=== PATIENT | female | born 1960 | race Caucasian/White ===

== ENCOUNTER → 2020-06-23 | Outpatient (CLI) | payer OTHER, SELFPAY ==
[2020-06-23 12:50] LABS: Absolute Lymphocyte Count 3.14 X10^3/uL (0.83-4.51); Absolute Neutrophil Count 2.4 X10^3/uL (2.0-7.7); Basophil# 0.06 X10^3/uL; Eosinophils% 3.2 % (0-5); Hematocrit 42.3 % (37-47); Hemoglobin 13.6 g/dL (12.0-15.0); Lymphocyte # 3.14 X10^3/ul (4.0); Lymphocyte % 50.2 % (19-41); Mean Corp Hgb Conc 32.2 g/dL (32-36); Mean Corpuscular Hgb 29.8 pg (27.0-32.0); Mean Corpuscular Volume 92.6 fL (81-99); Mean Platelet Vol. 9.3 fl (6.2-12.0); Monocyte# 0.43 X10^3/uL; Monocyte% 6.9 % (0-10); NRBC Flagged by Analyzer 0 % (0-5); Neutrophil # 2.41 X10^3/uL (2.7-7.7); Neutrophil % 38.5 % (47-70); Platelet Count 260 K/mm3 (150-450); RBC Distribution Width CV 13.2 % (11.6-14.6); RBC Distribution Width SD 44.7 fl (35.1-43.9); Red Blood Count 4.57 M/mm3 (4.2-5.4); White Blood Count 6.3 K/mm3 (4.4-11.0)
[2020-06-23 12:59] LABS: Erythrocyte Sedimentation Rate 10 mm/hr (0-30)
[2020-06-23 13:09] LABS: T3 Total - Triiodothyronine 1.13 ng/mL (0.6-1.81); Vitamin D,25 Hydroxy 39.6 ng/mL
[2020-06-23 13:18] LABS: AST(SGOT) 16 U/L (15-37); Alanine Aminotransfer ALT/SGPT 15 U/L (13-56); Albumin, Serum 3.7 g/dL (3.2-5.0); Alkaline Phosphatase 83 U/L (45-117); Anion Gap 5 (5-15); BUN 17 mg/dL (7-18); BUN/Creat Ratio 22.8 RATIO (10-20); Calcium,Total 9.3 mg/dL (8.5-10.1); Chloride 109 mmol/L (98-107); Cholesterol 187 mg/dL (200); Creatinine, Serum 0.75 mg/dL (0.55-1.02); EST Glomerular Filtration Rate 84 mL/min (>60); Est Glom Filt Rate - Afr Amer 102 mL/min (>60); Globulin 3.7 g/dL (2.2-4.2); Glucose 82 mg/dL (74-106); High Density Lipoprotein 75 mg/dL; Potassium 3.9 mmol/L (3.5-5.1); Protein, Total 7.4 g/dL (6.4-8.2); Sodium Level 141 mmol/L (136-145); T4 Total, Thyroxin 11.1 ug/dL (4.8-13.9); Thyroid Stim Hormone (TSH) 0.33 uIU/mL (0.358-3.74); Triglycerides 83 mg/dL; Very Low Density Lipoprotein 17 mg/dL (5-40)
== END | disposition home or self-care (01) ==
LOC: LAB 12:33
PROVIDERS: PCP Specialist; Referring Provider Specialist; Visit Provider Specialist
DX: B02.9 Zoster without complications (principal); R63.4 Abnormal weight loss
CPT/HCPCS: 36415; 80053; 80061; 82306; 84436; 84443; 84480; 85025; 85652

== ENCOUNTER → 2024-08-27 | Outpatient (CLI) | payer OTHER, SELFPAY | END | disposition home or self-care (01) | LOC: PSN 08:47 | PROVIDERS: PCP Specialist; Referring Provider Nurse Practitioner Family; Visit Provider Nurse Practitioner Family | DX: R06.02 Shortness of breath (principal) | CPT/HCPCS: 94060; 94726; 94729 ==

== ENCOUNTER → 2024-09-03 | Outpatient (CLI) | payer OTHER, SELFPAY ==
--- NOTE | 2024-09-03 11:45 | CT_ITS ---
HISTORY: shortness of breath, interstitial changes on xray. TECHNIQUE: Helically acquired images were obtained of the chest without contrast. A radiation dose optimization technique was used for this scan. 808 images. COMPARISON: XR 09/16/2023. FINDINGS: LARGE AIRWAYS: Patent. LUNGS: 2 mm left upper lobe nodules. Very mild linear lower lobe atelectasis or scarring. No acute alveolar consolidation, traction bronchiectasis, honeycombing PLEURA: No pneumothorax or significant pleural effusion. HEART/PERICARDIUM: Heart within normal limits in size. No significant coronary artery calcification. No pericardial effusion. VESSELS: Thoracic aorta nondilated. Atherosclerosis. MEDIASTINUM/ANTIONETTE: No pathologically enlarged adenopathy. UPPER ABDOMEN: Unremarkable. BONES: Mild degenerative change osteopenia. CT/Chest without Contrast IMPRESSION: 2 mm left upper lobe pulmonary nodules.Fleischner Society Guidelines for low-risk or high-risk patients recommend that one should consider chest CT at 12 months. Electronically Signed: Mariana Morris MD at 15:10 EST ,
[2024-09-03 12:06] VITALS: PULSE 86; PULSE 88; PULSE 89; PULSE 90; PULSE 91; PULSE 92; PULSE 94; O2SAT 94; O2SAT 95; O2SAT 96; O2SAT 97
--- NOTE | 2024-09-07 09:17 | PCM.PSN.6M ---
PSN 6 Minute Walk Test 6 Minute Walk Test 6 Minute Walk Test: 6 Minute Walk Test PSN:6-Minute Walk Test Start: 09/03/24 12:05 Freq: Status: Active Protocol: [id number] Document 09/03/24 12:06 [facility] (Rec: 09/03/24 12:12 [facility] [id number]) 6 Minute Walk Test Date Performed 09/03/24 Time Performed 11:50 Height 5 ft 8 in Weight: 124 lb Weight in Pounds 124.[address]: Arlene Zabala Assistive device used: None Pre-test Oxygen Delivery Method Room Air Pulse Ox (%) 96 Pulse Rate (60-100 beats/min) 91 Dyspnea Shanelle Scale (0-10) 0 1st minute Oxygen Delivery Method Room Air Pulse Ox (%) 96 Pulse Rate (60-100 beats/min) 88 Dyspnea Shanelle Scale (0-10) 0 Number of Rests Taken 0 2nd minute Oxygen Delivery Method Room Air Pulse Ox (%) 95 Pulse Rate (60-100 beats/min) 94 Dyspnea Shanelle Scale (0-10) 1 Number of Rests Taken 0 Reported Symptoms Increased Work of Breathing 3rd minute Oxygen Delivery Method Room Air Pulse Ox (%) 94 Pulse Rate (60-100 beats/min) 92 Dyspnea Shanelle Scale (0-10) 1 Number of Rests Taken 0 Reported Symptoms Increased Work of Breathing 4th minute Oxygen Delivery Method Room Air Pulse Ox (%) 96 Pulse Rate (60-100 beats/min) 90 Dyspnea Shanelle Scale (0-10) 1 Number of Rests Taken 0 Reported Symptoms Increased Work of Breathing 5th minute Oxygen Delivery Method Room Air Pulse Ox (%) 97 Pulse Rate (60-100 beats/min) 89 Dyspnea Shanelle Scale (0-10) 1 Number of Rests Taken 0 Reported Symptoms Increased Work of Breathing 6th minute Oxygen Delivery Method Room Air Pulse Ox (%) 96 Pulse Rate (60-100 beats/min) 91 Dyspnea Shanelle Scale (0-10) 1 Number of Rests Taken 0 Reported Symptoms Increased Work of Breathing Post-test Oxygen Delivery Method Room Air Pulse Ox (%) 97 Pulse Rate (60-100 beats/min) 86 Dyspnea Shanelle Scale (0-10) 0 Full Laps Walked 20 Partial Lap, Number of Tiles Walked 13 Total Distance Walked (ft) 1193 Interpretation Interpretation: The patient ambulated 1193 feet over the course of 6 minutes beginning on room air without assistive devices. Pretesting oxygen saturation was noted to be 96% on room air. With ambulation, the daxa oxygen saturation was 94%. There was no significant exertional oxygen desaturation. Recommendations Recommendations: There is no indication for the use of supplemental oxygen at this time.
== END | disposition home or self-care (01) ==
LOC: PSN 11:37
PROVIDERS: PCP Specialist; Referring Provider Nurse Practitioner Family; Visit Provider Nurse Practitioner Family
DX: R06.02 Shortness of breath (principal)
CPT/HCPCS: 71250; 94618

== ENCOUNTER → 2024-12-13 | Outpatient (CLI) | payer MEDICARE, OTHER, SELFPAY ==
--- NOTE | 2024-12-13 07:22 | ECHOD_ITS ---
Reason For Study Reason For Study: Dyspnea/SOB Procedure This was a 2D Doppler, Color Flow transthoracic echocardiogram. Exam performed in department. Left Ventricle Normal LV size. Left ventricular systolic function is normal. The left ventricular ejection fraction is 55 %. No regional wall motion abnormalities noted. Right Ventricle Normal RV size. Normal systolic function. Atria Normal left atrium. Normal right atrium. Mitral Valve Equivocal mitral valve prolapse. Mild (1+) eccentric mitral valve insufficiency. Tricuspid Valve Normal tricuspid valve. Mild tricuspid valve insufficiency. Aortic Valve Trisinus/trileaflet aortic valve. Pulmonic Valve Normal pulmonic valve. Great Vessels Normal aortic root. The pulmonary artery is normal size. Inferior vena cava collapse with respiration. Pericardium/Pleural No pericardial effusion. MMode/2D Measurements & Calculations LVIDd: 4.6 cm IVSd: 0.98 cm Ao root diam: 3.2 cm LVIDs: 3.1 cm LVPWd: 0.79 cm RVDd: 3.5 cm FS: 32.5 % LAV(MOD-bp): 41.8 ml LVAd ap4: 22.7 cm2 SV(MOD-sp4): 32.8 ml LAV(MOD-bp) Indexed: 24.8 ml/m2 LVLd ap4: 7.1 cm SI(MOD-sp4): 19.4 ml/m2 LAV(MOD-sp2): 35.9 ml EDV(MOD-sp4): 59.8 ml LAV(MOD-sp4): 46.6 ml EDV(sp4-el): 61.3 ml LVAs ap4: 13.8 cm2 LVLs ap4: 6.1 cm ESV(MOD-sp4): 27.0 ml ESV(sp4-el): 26.7 ml EF(MOD-sp4): 54.8 % EF(sp4-el): 56.4 % SV(sp4-el): 34.6 ml LA A4 area: 17.2 cm2 LA dimension(2D): 3.1 cm RA A4 area: 14.2 cm2 TAPSE: 2.2 cm Time Measurements MV dec time: 0.19 sec Doppler Measurements & Calculations MV E max robert: 57.5 cm/sec Lat Peak E' Robert: 8.2 cm/sec Med Peak E' Robert: 7.2 cm/sec MV A max robert: 67.6 cm/sec E/E' lat: 7.0 E/E' med: 8.0 MV E/A: 0.85 MV V2 max: 79.4 cm/sec MV P1/2t max robert: 79.4 cm/sec Ao V2 max: 101.4 cm/sec MV max P.5 mmHg MV P1/2t: 79.9 msec Ao max P.1 mmHg MV V2 mean: 56.3 cm/sec Ao V2 mean: 71.5 cm/sec MV mean P.4 mmHg MV dec slope: 290.8 cm/sec2 Ao mean P.3 mmHg MV V2 VTI: 24.0 cm MVA(P1/2t): 2.8 cm2 Ao V2 VTI: 25.8 cm AV (velocity ratio): 0.80 LV V1 max: 84.0 cm/sec PA V2 max: 122.5 cm/sec TR max robert: 239.9 cm/sec LV V1 max P.8 mmHg PA V2 mean: 76.2 cm/sec TR max P.0 mmHg LV V1 mean P.6 mmHg LV V1 mean: 60.0 cm/sec LV V1 VTI: 20.7 cm ECHO/Echo Complete Interpretation Summary Normal LV size. Left ventricular systolic function is normal. The left ventricular ejection fraction is 55 %. Equivocal mitral valve prolapse. Mild (1+) eccentric mitral valve insufficiency. Ordering Physician: Sebastian Thomas Referring Physician: Sebastian Thomas Performed By: Moises Mercado RCS
[2024-12-13 07:45] LABS: Hematocrit 41.6 % (37-47); Hemoglobin 13.8 g/dL (12.0-15.0); Mean Corp Hgb Conc 33.2 g/dL (32-36); Mean Corpuscular Hgb 30.7 pg (27.0-32.0); Mean Corpuscular Volume 92.4 fL (81-99); Platelet Count 257 K/mm3 (150-450); RBC Distribution Width SD 43.9 fl (35.1-43.9); White Blood Count 8.6 K/mm3 (4.4-11.0)
[2024-12-13 08:21] LABS: ALB/GLOB Ratio 1.5 RATIO (0.9-2.4); AST(SGOT) 30 U/L (<=31); Alanine Aminotransfer ALT/SGPT 15 U/L (<=34); Albumin, Serum 4.2 g/dL (3.4-4.8); Alkaline Phosphatase 95 U/L (35-104); Anion Gap 11 (5-15); BUN 16 mg/dL (4-19); BUN/Creat Ratio 21.8 RATIO (10-20); Calcium,Total 10.7 mg/dL (7.6-11.0); Carbon Dioxide 26.3 mmol/L (21.0-32.0); Chloride 104 mmol/L (98-108); Cholesterol 182 mg/dL (<=200); Creatinine, Serum 0.72 mg/dL (0.70-1.20); EST Glomerular Filtration Rate 93 (>60); Globulin 2.8 g/dL (2.2-4.2); Glucose 91 mg/dL (70-99); High Density Lipoprotein 94 mg/dL; Low Density Lipoprotein Calc. 74 mg/dL; Potassium 3.7 mmol/L (3.3-5.1); Sodium Level 141 mmol/L (133-145); Total Bilirubin 0.46 mg/dL (0.00-1.30); Triglycerides 70 mg/dL; Very Low Density Lipoprotein 14 mg/dL (5-40); cholesterol:hdl ratio screen 1.94
--- NOTE | 2024-12-13 16:28 | STRESSREP ---
Stress Test Report Pharmacologic myocardial perfusion stress test. 64-year-old lady with a history of dyspnea on exertion Resting EKG demonstrates sinus rhythm with a rate of 67 bpm. Resting blood pressure is 104/60 mmHg. 0.4 mg of regadenoson was infused per usual protocol followed by rapid intravenous saline flush injection. Continuous EKG monitoring was performed. The maximum heart rate was 99 bpm which was 63% of max impacted heart rate the maximum workload was 1 metabolic equivalent. At rest there were no ST or T wave changes noted to suggest ischemia and at peak infusion nonspecific ST changes were noted which did not meet the criteria for ischemia. No clinical angina is noted. The final blood pressure was 108/52 mmHg. Myocardial perfusion protocol. 11.3 mCi of technetium 99m sestamibi was injected at rest. 0.4 mg of regadenoson was infused per usual protocol. At peak infusion 34.2 mCi of technetium 99m sestamibi was injected stress images were obtained stress and rest images were reconstructed and compared in the short axis vertical long and horizontal long axis. Gated images were also obtained. Perfusion SPECT analysis: Review of the stress images demonstrate normal uptake of tracer noted in all areas of the myocardium. The resting images similar demonstrated normal uptake of tracer noted in all areas of the myocardium. No areas of reversibility are noted to suggest ischemia and no previous infarct is noted. Gated SPECT analysis: The gated ejection fraction is 87%. Conclusion: Normal pharmacologic myocardial perfusion stress test. Preserved ejection fraction.
== END | disposition home or self-care (01) ==
PROVIDERS: Referring Provider Internal Medicine Cardiovascular Disease; Visit Provider Internal Medicine Cardiovascular Disease
DX: R06.09 Other forms of dyspnea (principal); R07.9 Chest pain, unspecified
CPT/HCPCS: 36415; 78452; 80053; 80061; 85027; 93017; 93306; A9500; A4216; J2785

== ENCOUNTER → 2025-09-05 | Outpatient (CLI) | payer MEDICARE, SELFPAY ==
--- NOTE | 2025-09-05 13:05 | CT_ITS ---
PROCEDURE: CHEST WITHOUT CONTRAST 09/05/2025 REASON FOR EXAM: 2MM LIEN NODULE, SIGNIFICANT SMOKE HISTORY EXPOSURE TECHNIQUE: Chest CT without contrast. Coronal and Sagittal reconstruction series were provided. One or more dose reduction techniques were used (e.g., Automated exposure control, adjustment of the mA and/or kV according to patient size, use of iterative reconstruction technique RADIATION DOSE SUMMARY: CTDlvol: 6.0 mGy DLP: 253 mGycm COMPARISON: August 2024. FINDINGS: Thyroid gland: Negative. Lungs: Mild emphysematous changes. Left upper lobe subpleural nodule image 30 unchanged. No new pulmonary nodules or masses Pleura: Negative for pleural effusion or pneumothorax. Airways: Imaged bronchi and trachea negative. Mediastinum: Negative for mediastinal mass. Lymph nodes: Negative for axillary, mediastinal or hilar adenopathy. Heart and Vasculature: Heart normal size. Ascending thoracic aorta measures 3.2 by 3.3 cm. Mild vascular calcifications of the thoracic aorta. Coronary Artery Calcifications: Minimal vascular calcifications of the coronary arteries Upper Abdomen: Negative Hardware: None. Bones: Age-appropriate degenerative changes of the thoracic spine. CT/Chest without Contrast IMPRESSION: Mild emphysema. Very small left upper lobe pulmonary nodule. Stable no further evaluation need ed. Reading Location: [id number]
== END | disposition home or self-care (01) ==
LOC: CT 13:05
PROVIDERS: Referring Provider Nurse Practitioner Family; Visit Provider Nurse Practitioner Family
DX: R91.1 Solitary pulmonary nodule (principal)
CPT/HCPCS: 71250